=== PATIENT | female | born 1995 | race Two or more races ===

== ENCOUNTER 2016-08-08 21:46 | Emergency (ER) | payer BC, MEDICAID ==
[~2016-08-08] VITALS: Ht 152.4 cm; Wt 44.9 kg
[2016-08-08 21:58] VITALS: BP 133/91
--- NOTE | 2016-08-08 22:19 | NUR ---
TO ER OF2
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
--- NOTE | 2016-08-08 22:20 | NUR ---
Patient being evaluated by physician.
[2016-08-08 22:31] VITALS: BP 123/68
--- NOTE | 2016-08-08 22:31 | NUR ---
Patient discharged with v/s stable. Written and verbal after care instructions given and explained. Patient alert, oriented and verbalized understanding of instructions. Ambulatory with steady gait. All questions addressed prior to discharge. ID band removed. Patient advised to follow up with PMD BY TOMORROW OR RETURN TO ER IF CONDITION WORSENS. Rx of MOTRIN AND TYLENOL WITH STREIGHT given. Patient educated on indication of medication including possible reaction and side effects. Opportunity to ask questions provided and answered.
== END 2016-08-08 22:31 | disposition home or self-care (01) ==
LOC: MED 21:46
DX: S09.90XA Unspecified injury of head, initial encounter (principal); F07.81 Postconcussional syndrome; R03.0 Elevated blood-pressure reading, without diagnosis of hypertension; W50.0XXA Accidental hit or strike by another person, initial encounter; Y93.89 Activity, other specified; Y92.89 Other specified places as the place of occurrence of the external cause; Y99.8 Other external cause status